=== PATIENT | male | born 1960 | race Caucasian/White ===

== ENCOUNTER 2017-02-23 09:27 | Emergency (ER) | payer MEDICAID ==
[~2017-02-23] VITALS: Ht 175.3 cm; Wt 65.0 kg
[2017-02-23] MEDS ORDERED: LORazepam 2 MG/ML, 1ML ONE (10:25)
[2017-02-23] MEDS ORDERED: LORazepam 2 MG/ML, 1ML IM ONE (10:30)
[2017-02-23] MEDS ORDERED: THIAMINE 100MG TABLET PO ONE (10:30)
[2017-02-23] MEDS ORDERED: BEER 12 OZ CAN PO ONE (10:30)
[2017-02-23] MEDS ORDERED: THIAMINE 100MG TABLET ONE (10:37)
[2017-02-23 11:04] LABS: ASPARTATE AMINO TRANSFERASE 415 U/L (15-37); BLOOD UREA NITROGEN 8 mg/dL (7-18)
[2017-02-23 11:41] VITALS: BP 132/90
== END 2017-02-23 12:10 | disposition home or self-care (01) ==
LOC: ED 12:04
DX: F10.239 Alcohol dependence with withdrawal, unspecified (principal)
CPT/HCPCS: 36415; 80053; 96372; 99283; J2060